=== PATIENT | female | born 1965 | race Caucasian/White ===

== ENCOUNTER 2019-10-15 05:48 | Day surgery (SDC) | payer SELFPAY ==
[2019-10-15] VITALS (7 sets, daily range): BP systolic 90–155; BP diastolic 43–104; PULSE 70–81; RESP 16–18; TEMP 36.2–37.2; O2SAT 93–100; BMI 36.6
[2019-10-15] MEDS: Lactated Ringers 1,000 ML 100 ML IV (06:15)
--- NOTE | 2019-10-15 06:26 | PCM.HP.STD ---
Problem List (1) Screening for intestinal cancer Status: Acute History of Present Illness Date of Admission: 10/15/19 The patient is a 54 year old F who presents for screening colonoscopy. She has never had a previous one. Her mother had colon cancer at approximately age 53. The patient has hypertension. She denies other chronic health issues. She presents via our open access program. She denies abdominal pain or bright red blood per rectum or melena. Past Medical History Allergies No Known Allergies Allergy (Verified 10/11/19 14:17) Home Medications: Ambulatory Orders Medication Instructions Recorded Atorvastatin Calcium [Lipitor] 40 mg PO QHS 10/14/19 Cholecalciferol (Vitamin D3) 5,000 unit PO MO 10/14/19 [Vitamin D3] Cyanocobalamin [Vitamin B12] 2,000 mcg PO DAILY@0800 10/14/19 Levothyroxine [Synthroid] 25 mcg PO DAILY 10/14/19 Losartan/Hydrochlorothiazide 1 ea PO DAILY 10/14/19 [Losartan-Hctz 100-25 mg Tab] Multivitamin [Multiple Vitamins] 1 ea PO DAILY 10/14/19 Smoking Status: Never smoker Tobacco Use: Non-smoker Review of Systems Constitutional: Denies: Anorexia HEENT: Denies: Difficulty Swallowing Cardiovascular: Denies: Chest Pain Respiratory: Denies: Cough Gastrointestinal: Denies: Abdominal Pain, Melena Endocrine: Denies: Change in Body Habitus VTE Information - Inpt Only VTE Present on Admission: No Patient Problems: Active and Suspected Problems Screening for intestinal cancer (Acute) - Physical Exam Vitals/I&O's: Vital Signs Temp Pulse Resp BP Pulse Ox 97.2 F L 81 16 124/104 H 93 10/15/19 06:09 10/15/19 06:09 10/15/19 06:09 10/15/19 06:09 10/15/19 06:09 Oxygen Delivery Method Room Air Weight: 226 lb 13.69 oz Body Mass Index (BMI) 36.6 General: Alert, Oriented x3, Cooperative, No apparent distress HEENT: Atraumatic Oral: Moist Mucosa Lungs: Clear to auscultation, Normal air movement Cardiovascular: Regular rate, Regular Rhythm Abdomen: Bowel Sounds Present, Soft, Non Tender, Obese Extremities: No Calf Tenderness Psych/Mental Status: Normal Affect Current Medications Lactated Ringer's () 1,000 mls @ 100 mls/hr IV .Q10H [facility] Last Admin: 10/15/19 06:15 Dose: 100 mls/hr Documented by: Assessment/Plan All Active Problems Screening for intestinal cancer (Acute) Screening colonoscopy with possible biopsy or polypectomy is indicated. The patient is aware of the technique, benefit, risk, alternatives. She has had an opportunity to ask and have questions answered. She presents via open access. We will proceed as noted.
--- NOTE | 2019-10-15 06:56 | OP.COLON_ITS ---
Patient Name: Lisa Lin Procedure Date: 10/15/2019 6:08 AM Date of : 1965 Age: 54 Procedure: Colonoscopy Indications: Screening in patient at increased risk: Family history of 1st-degree relative with colorectal cancer before age 60 years Providers: Evangelist Paniagua MD Referring MD: Lady Bryson Medicines: Midazolam 3.5 mg IV, Meperidine 100 mg IV Patient Profile: Last Colonoscopy: none. The patient's first colonoscopy is today. Complications: No immediate complications. Procedure: Pre-Anesthesia Assessment: - Prior to the procedure, a History and Physical was performed, and patient medications and allergies were reviewed. The patient's tolerance of previous anesthesia was also reviewed. The risks and benefits of the procedure and the sedation options and risks were discussed with the patient. All questions were answered, and informed consent was obtained. Prior Anticoagulants: The patient has taken no previous anticoagulant or antiplatelet agents. ASA Grade Assessment: II - A patient with mild systemic disease. After reviewing the risks and benefits, the patient was deemed in satisfactory condition to undergo the procedure. After I obtained informed consent, the scope was passed under direct vision. Throughout the procedure, the patient's blood pressure, pulse, and oxygen saturations were monitored continuously. The colonoscope was introduced through the anus and advanced to the cecum, identified by appendiceal orifice and ileocecal valve. The colonoscopy was performed without difficulty. The patient tolerated the procedure well. The quality of the bowel preparation was good. The ileocecal valve and the appendiceal orifice were photographed. Moderate Sedation: Moderate (conscious) sedation was administered by the endoscopy nurse and supervised by the endoscopist. The following parameters were monitored: oxygen saturation, heart rate, blood pressure, and response to care. Total physician intraservice time was 15 minutes. Scope In: 6:42:45 AM Scope Withdrawal Time 0 hours 6 minutes 6 seconds Scope Out: 6:52:12 AM Total Procedure Duration Time 0 hours 9 minutes 27 seconds Findings: The digital rectal exam findings include non-thrombosed external hemorrhoids, non-thrombosed internal hemorrhoids and internal hemorrhoids that prolapse with straining, but spontaneously regress to the resting position (Grade II). A few diverticula were found in the sigmoid colon. The exam was otherwise without abnormality. Impression: - Non-thrombosed external hemorrhoids, non-thrombosed internal hemorrhoids and internal hemorrhoids that prolapse with straining, but spontaneously regress to the resting position (Grade II) found on digital rectal exam. - Diverticulosis in the sigmoid colon. - The examination was otherwise normal. - No specimens collected. Recommendation: - Discharge patient to home. - Resume previous diet. - Continue present medications. - Repeat colonoscopy in 5 years for surveillance. Procedure Code(s): --- Professional --- 06676, Colonoscopy, flexible; diagnostic, including collection of specimen(s) by brushing or washing, when performed (separate procedure) 72503, 59, Moderate sedation services provided by the same physician or other qualified health nurse wound care performing the diagnostic or therapeutic service that the sedation supports, requiring the presence of an independent trained observer to assist in the monitoring of the patient's level of consciousness and physiological status; initial 15 minutes of intraservice time, patient age 5 years or older Diagnosis Code(s): --- Professional --- Z80.0, Family history of malignant neoplasm of digestive organs K64.1, Second degree hemorrhoids K64.4, Residual hemorrhoidal skin tags K57.30, Diverticulosis of large intestine without perforation or abscess without bleeding CPT copyright 2017 [employer]. All rights reserved. The codes documented in this report are preliminary and upon suspension cord tier review may be revised to meet current compliance requirements. Evangelist Paniagua MD 10/15/2019 6:56:15 AM This report has been signed electronically. Number of Addenda: 0 Note Initiated On: 10/15/2019 6:08 AM
--- NOTE | 2019-10-15 06:57 | OP.CCLET_ITS ---
10/15/2019 Stefaniadonovan Bryson Re : Colonoscopy procedure for Lisa Lin Dear Braydon This procedure was performed on Tuesday, October 15, 2019. My impressions and recommendations are as follows: Impressions : - Non-thrombosed external hemorrhoids, non-thrombosed internal hemorrhoids and internal hemorrhoids that prolapse with straining, but spontaneously regress to the resting position (Grade II) found on digital rectal exam. - Diverticulosis in the sigmoid colon. - The examination was otherwise normal. - No specimens collected. Recommendations : - Discharge patient to home. - Resume previous diet. - Continue present medications. - Repeat colonoscopy in 5 years for surveillance. My findings are described in the full procedure note, which is enclosed. If I can be of further assistance, please feel free to contact me at Doctor phone number(s): Work: . Sincerely, Evangelist Paniagua MD 10/15/2019 6:56:15 AM This report has been signed electronically.
== END 2019-10-15 07:40 | disposition home or self-care (01) ==
LOC: EN 05:53 → AC 06:05
PROVIDERS: Visit Provider Surgery
PROC: 0DJD8ZZ Inspection of Lower Intestinal Tract, Via Natural or Artificial Opening Endoscopic (ICD-10-PCS; CPT 45378; principal; 2019-10-15 06:25)
DX: Z12.11 Encounter for screening for malignant neoplasm of colon (principal); K64.1 Second degree hemorrhoids; K64.4 Residual hemorrhoidal skin tags; K57.30 Diverticulosis of large intestine without perforation or abscess without bleeding; Z80.0 Family history of malignant neoplasm of digestive organs; I10 Essential (primary) hypertension; E78.00 Pure hypercholesterolemia, unspecified; E06.9 Thyroiditis, unspecified; Z79.899 Other long term (current) drug therapy
CPT/HCPCS: 45378; 99152; 99153; J7120